=== PATIENT | female | born 1960 | race Caucasian/White ===

== ENCOUNTER 2016-12-21 20:56 | Emergency (ER) | payer MEDICARE ==
[~2016-12-21 20:56] MED LIST: PRED50; VENTAER INH; Z.0.NO CURRENT MEDS; ZITH250T PO
[2016-12-21 20:57] VITALS: BP 137/76; PULSE 91; RESP 16; TEMP 97.8; O2SAT 96
[2016-12-21] MEDS ORDERED: TRAM50TA PO (21:16)
[2016-12-21] MEDS ORDERED: KETOROLAC TROMETHAMINE 60 MG/2 ML (IM) VIAL IM ONE (22:00)
[2016-12-21] MEDS ORDERED: MOBI15TA PO (22:03)
--- NOTE | 2016-12-21 22:03 | PD ---
HPI Chief Complaint: Pain: Acute or Chronic Time Seen by Provider: 22:00 Travel History International Travel<30 days: No Contact w/Intl Traveler<30days: No Traveled to known affect area: No History of Present Illness HPI 56-year-old female with history of right knee pain presents to emergency department for evaluation of right knee pain. Patient states that it has been ongoing for weeks. She has seen her primary care provider. She has been referred to curatorial specialist. She has had x-ray imaging done without acute bony abnormality but osteoarthritis identified. She had an ultrasound done yesterday which she states was negative for DVT. States the pain persists and she would like to know what is wrong. She states it is primarily on the posterior aspect of her knee. Does not recall an injury. Denies any alterations in sensation. States pain is exacerbated by flexion of the knee. She has no other symptoms reported this time. PFSH Past Medical History Diminished Hearing: No Immunizations Current: Yes Menopausal: Yes Past Surgical History Section: Yes Social History Alcohol Use: No Tobacco Use: No Substance Use: No Allergies-Medications (Allergen,Severity, Reaction): Coded Allergies: No Known Allergies (Unverified , 12/21/16) Reported Meds & Prescriptions Reported Meds & Active Scripts Active Mobic (Meloxicam) 15 Mg Tab 15 Mg PO DAILY PRN Reported Tramadol (Tramadol HCl) 50 Mg Tab 50 Mg PO Q6H PRN Review of Systems Except as stated in HPI: all other systems reviewed are Neg Physical Exam Narrative GENERAL: Well-nourished, well-developed female patient, in no acute distress SKIN: Warm and dry. Without erythema or edema HEAD: Normocephalic. EYES: No scleral icterus. No injection or drainage. NECK: Supple, trachea midline. No JVD or lymphadenopathy. CARDIOVASCULAR: Regular rate and rhythm without murmurs, gallops, or rubs. RESPIRATORY: Breath sounds equal bilaterally. No accessory muscle use. GASTROINTESTINAL: Abdomen soft, non-tender, nondistended. MUSCULOSKELETAL: No cyanosis, or edema. Tenderness elicited palpation on the posterior right knee. No deformity. Patient can flex and extend the knee without difficulty. No laxity without the severe stress. Distal pulses are palpable. Cap refills within normal limits. BACK: Nontender without obvious deformity. No CVA tenderness. Data Data Last Documented VS Vital Signs Date Time Temp Pulse Resp B/P Pulse Ox O2 Delivery O2 Flow Rate FiO2 12/21/16 20:57 97.8 91 16 137/76 96 Room Air Orders Ketorolac Inj (Toradol Inj) (12/21/16 22:00) ^ Flaco Bandage (12/21/16 21:59) MDM Medical Decision Making Medical Screen Exam Complete: Yes Emergency Medical Condition: Yes Medical Record Reviewed: Yes Differential Diagnosis Ligamentous injury versus osteoarthritis versus Singh cyst versus effusion versus bursitis Narrative Course 56 year-old female presents to emergency department for evaluation of persistent posterior right knee pain. Patient has had imaging studies completed outpatient to include an ultrasound yesterday to rule out DVT. I have reassured the patient that she is doing all of the right things and she has scheduled follow-up as this is appropriate. I would give her additional pain control here but advised that she continue to take her medication as already prescribed. She agrees to return immediately with any acute worsening of symptoms. Diagnosis Primary Impression: Posterior right knee pain Referrals: Orthopaedic Surgeon Primary Care Physician Patient Instructions: General Instructions, Knee Pain (ED) Additional Instructions: Flaco wrap for compression Ice and elevate to reduce pain and swelling Follow-up with primary care provider Keep your orthopedic appointment Continue him pain medication as prescribed Return immediately to the emergency department with any acute worsening symptoms Med/Other Pt SpecificInfo: Prescription(s) given Scripts Meloxicam (Mobic)15 Mg Tab15 Mg PO DAILY PRN (PAIN SCALE 1 TO 10) #15 TAB Ref 0 Prov:Usha Moreira 12/21/16 Disposition: 01 DISCHARGE HOME Condition: Stable Usha Moreira Dec 21, 2016 22:03
== END 2016-12-21 22:39 | disposition home or self-care (01) ==
LOC: NEPB 20:56
DX: M25.561 Pain in right knee (principal)
CPT/HCPCS: 99283